=== PATIENT | female | born 1955 | race Hispanic/Latino ===

== ENCOUNTER 2019-08-09 11:08 | Outpatient (CLI) | payer OTHER, MEDICARE, MEDICAID ==
[2019-08-09] MEDS ORDERED: Iopamidol-370 76% 500 ML 1 ML ONE (12:01)
--- NOTE | 2019-08-09 14:06 | CT ---
CT ABDOMEN AND PELVIS WITH AND WITHOUT IV CONTRAST: 08/09/19 HISTORY: Left lower quadrant pain. FINDINGS: There are no previous exams for comparison. The lung bases are unremarkable. The liver, spleen, pancreas, adrenal glands and kidneys are normal. No calculi is seen in the kidneys, ureters or the urinary bladder. No hydroureteronephrosis is seen o n either side. No calcified gallstones are noted. No free air, free fluid or lymphadenopathy seen in the abdomen or pelvis. There are vascular calcific ations without evidence for aneurysmal dilatation of the abdominal aorta. The uterus is present. Ther e are degenerative changes in the spine. The small bowel loops are not abnormally dilated. There are postop changes of appendectomy. No pericolonic inflammatory changes are seen. IMPRESSION: No significant abnormalities are identified. POS: [facility]
== END 2019-08-09 11:09 | disposition home or self-care (01) ==
LOC: BICCT 11:08
PROVIDERS: ATTEND Family Medicine
DX: R10.32 Left lower quadrant pain (principal)
CPT/HCPCS: 74178; 82565; Q9967